=== PATIENT | male | born 1980 | race Caucasian/White ===

== ENCOUNTER 2016-08-13 15:33 | Emergency (ER) | payer OTHER ==
[2016-08-13] MEDS ORDERED: CEPHALEXIN 500 MG CAPSULE ONE (16:48)
--- NOTE | 2016-08-13 17:22 | RAD ---
FINGER LEFT HISTORY: Contaminated finger laceration. COMPARISONS: Examination of the same day. FINDINGS: 3 views of the left second ray demonstrate normal bony mineralization. There is note made of small calcific foci along the radial aspect of the midportion of the proximal phalanx of the second ray. The appearance is essentially unchanged from the appearance on the examination of earlier the same day. Distortion of the adjacent soft tissues likely reflects the patient's known laceration. IMPRESSION: 1. Reidentification of the small calcific foci along the radial cortical margin of the midportion of the proximal phalanx of the second ray. The appearance is similar to the examination performed earlier the same day.
== END 2016-08-13 16:21 | disposition home or self-care (01) ==
LOC: ED 15:33
DX: S61.221D Laceration with foreign body of left index finger without damage to nail, subsequent encounter (principal); L03.012 Cellulitis of left finger; W29.8XXD Contact with other powered hand tools and household machinery, subsequent encounter; Y92.9 Unspecified place or not applicable; Y99.9 Unspecified external cause status
CPT/HCPCS: 73140; 99283 ×2; 29125; A9270